=== PATIENT | male | born 2000 | race Caucasian/White ===

== ENCOUNTER 2022-04-26 09:47 | Outpatient (CLI) | payer BC, SELFPAY ==
[2022-04-26 14:49] LABS: Chloride* 107 mmol/L (96-114)
[2022-04-26 14:50] LABS: Albumin* 4.8 g/dL (3.3-5.0); Sodium* 143 mmol/L (135-149)
[2022-04-26 14:53] LABS: Alanine Aminotransferase* 67 U/L (4-50); Alkaline Phosphatase* 140 U/L (40-150); Aspartate Amino Transferase* 50 U/L (12-35); Bilirubin Total* 0.5 mg/dL (0.1-1.5); Blood Urea Nitrogen* 19 mg/dL (5-24); Carbon Dioxide* 26 mmol/L (20-32); Creatinine* 1.1 mg/dL (0.5-1.5); Estimated Glomerular Filt Rate 97 ml/min; Glucose* 106 mg/dL (60-115); Total Protein* 7.7 g/dL (6.0-8.3)
[2022-04-26 14:54] LABS: Calcium* 9.6 mg/dL (8.4-10.6)
== END 2022-04-26 09:48 | disposition home or self-care (01) ==
LOC: LKVREF 09:48
PROVIDERS: PCP Family Medicine; Visit Provider Family Medicine
DX: R10.9 Unspecified abdominal pain (principal)
CPT/HCPCS: 80053

== ENCOUNTER 2022-11-30 09:04 | Outpatient (CLI) | payer BC, SELFPAY | END 2022-11-30 09:05 | disposition home or self-care (01) | PROVIDERS: PCP Family Medicine; Visit Provider Family Medicine | DX: Z00.00 Encounter for general adult medical examination without abnormal findings (principal); E66.9 Obesity, unspecified; R79.89 Other specified abnormal findings of blood chemistry; F98.8 Other specified behavioral and emotional disorders with onset usually occurring in childhood and adolescence | CPT/HCPCS: 80076 ==

== ENCOUNTER 2023-03-06 08:20 | Outpatient (CLI) | payer BC, SELFPAY | END 2023-03-06 08:21 | disposition home or self-care (01) | LOC: NFLDREF 03-08 12:29 | PROVIDERS: PCP Family Medicine; Referring Provider Family Medicine; Visit Provider Family Medicine | DX: E66.9 Obesity, unspecified (principal); R79.89 Other specified abnormal findings of blood chemistry | CPT/HCPCS: 80061; 80076 ==

== ENCOUNTER 2025-05-11 11:30 | Outpatient (CLI) | payer BC, SELFPAY | END 2025-05-11 11:31 | disposition home or self-care (01) | LOC: LKVREF 11:32 | PROVIDERS: PCP Family Medicine; Visit Provider Family Medicine | DX: E78.00 Pure hypercholesterolemia, unspecified (principal); E66.9 Obesity, unspecified; Z68.41 Body mass index [BMI] 40.0-44.9, adult; R00.2 Palpitations; R42 Dizziness and giddiness; R79.89 Other specified abnormal findings of blood chemistry; R53.83 Other fatigue | CPT/HCPCS: 80053; 80061; 84443 ==